=== PATIENT | female | born 1995 | race African-American/Black ===

== ENCOUNTER 2018-12-23 14:56 | Emergency (ER) | payer SELFPAY ==
[~2018-12-23] VITALS: Ht 162.6 cm; Wt 60.0 kg
[2018-12-23 15:50] VITALS: BP 118/62
== END 2018-12-23 15:59 | disposition home or self-care (01) ==
LOC: ER 14:56
DX: T23.011A Burn of unspecified degree of right thumb (nail), initial encounter (principal); X12.XXXA Contact with other hot fluids, initial encounter; Y93.89 Activity, other specified; Y92.89 Other specified places as the place of occurrence of the external cause; Y99.8 Other external cause status
CPT/HCPCS: 99283